=== PATIENT | male | born 2000 | race Caucasian/White ===

== ENCOUNTER 2020-05-25 07:19 | Day surgery (SDC) | payer MEDICAID ==
[~2020-05-25] VITALS: Ht 170.2 cm; Wt 90.7 kg
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
[2020-05-25 07:54] VITALS: BP 148/79; Ht 170.2 cm; Wt 90.7 kg
== END 2020-05-25 13:30 | disposition home or self-care (01) ==
LOC: D.OPS 07:19
PROVIDERS: ATTEND Orthopaedic Surgery
DX: S52.601A Unspecified fracture of lower end of right ulna, initial encounter for closed fracture (principal); X58.XXXA Exposure to other specified factors, initial encounter; M25.531 Pain in right wrist